=== PATIENT | female | born 1965 | race Caucasian/White ===

== ENCOUNTER → 2017-10-03 | Outpatient (CLI) | payer OTHER ==
[~2017-10-03] MED LIST: ACID1GRA3 PO; VANC1VIA3 PO
== END ==
LOC: CVU 07:42 → EDSTATUS 08:00
PROVIDERS: ATTEND Internal Medicine Cardiovascular Disease
DX: R00.2 Palpitations (principal); R06.02 Shortness of breath; Z82.49 Family history of ischemic heart disease and other diseases of the circulatory system
CPT/HCPCS: 93306

== ENCOUNTER 2018-08-21 12:59 | Emergency (ER) | payer OTHER ==
[~2018-08-21] VITALS: Ht 157.5 cm; Wt 63.5 kg
[2018-08-21 13:10] VITALS: BP 126/81
[2018-08-21] MEDS ORDERED: ASPIRIN 81 MG TABLET CHEW PO ONE (13:30)
[2018-08-21 13:43] LABS: BASOPHILS # (AUTO) 0.06 x10^3/uL (0-0.1); BASOPHILS % (AUTO) 1 % (0-1); EOSINOPHILS # (AUTO) 0.09 x10^3/uL (0-0.4); EOSINOPHILS % (AUTO) 1 % (1-7); LYMPHOCYTES # (AUTO) 2.59 x10^3/uL (1-3.4); LYMPHOCYTES % (AUTO) 29 % (22-44); MD NO; MEAN CORPUSCULAR HEMOGLOBIN 29.7 pg (27.0-34.8); MEAN CORPUSCULAR HGB CONC 33.4 g/dL (32.4-35.8); MEAN CORPUSCULAR VOLUME 88.9 fL (80-100); MEAN PLATELET VOLUME 9.2 fL (7.4-10.4); MONOCYTES # (AUTO) 0.53 x10^3/uL (0.2-0.8); MONOCYTES % (AUTO) 6 % (2-9); NEUTROPHILS # (AUTO) 5.72 x10^3/uL (1.8-6.8); NEUTROPHILS % (AUTO) 64 % (42-75); PLATELET COUNT 217 x10^3/uL (130-400); RED BLOOD COUNT 4.99 x10^6/uL (3.82-5.3); RED CELL DISTRIBUTION WIDTH 13.5 % (9.6-15.2)
[2018-08-21 13:55] LABS: ANION GAP 6 mmol/L (5-15); CALCIUM 9.2 mg/dL (8.5-10.1); CHLORIDE 108 mmol/L (98-107)
[2018-08-21 14:02] LABS: CREATININE 0.82 mg/dL (0.55-1.02); TROPONIN I < 0.015 ng/mL (0.000-0.045)
--- NOTE | 2018-08-21 14:20 | NUR ---
Pt presents for FB sensation in throat x several days. Able to swallow. NAD at this time.
--- NOTE | 2018-08-21 14:27 | NUR ---
Hold ASA per MD
--- NOTE | 2018-08-21 14:37 | NUR ---
DELAY/ PROCEDURE IN FLUORO ROOM
--- NOTE | 2018-08-21 16:59 | NUR ---
Patient/Caregiver given discharge instructions and they have confirmed that they understand the instructions. Patient ambulatory with steady gait.
== END 2018-08-21 17:00 | disposition home or self-care (01) ==
LOC: ED 16:34
DX: R13.14 Dysphagia, pharyngoesophageal phase (principal); K21.9 Gastro-esophageal reflux disease without esophagitis
CPT/HCPCS: 36415; 71045; 74220; 80048; 82040; 84484; 85025; 93005; 99284

== ENCOUNTER → 2020-03-24 | Outpatient (CLI) | payer OTHER | END | disposition home or self-care (01) | LOC: CFH 13:51 | PROVIDERS: ATTEND Family Medicine | DX: N64.4 Mastodynia (principal) | CPT/HCPCS: 76642; 77066; G0279 ==

== ENCOUNTER 2020-07-18 10:18 | Emergency (ER) | payer OTHER ==
[~2020-07-18] VITALS: Ht 157.5 cm; Wt 66.3 kg
--- NOTE | 2020-07-18 10:58 | NUR ---
Pt found sitting on edge of bed with moderately swollen L thumb. Pt states she had her nails done 3 weeks ago where glue had gotten under the nail edge and started to swell, then it was "popped open" with the edge of a postcard and has remained sore and swollen since. Pt has been on PO abx since of this week without change in soreness or swelling. MD just left room and we are awaiting MD orders at this time.
[2020-07-18 11:09] VITALS: BP 129/56
== END 2020-07-18 12:26 | disposition home or self-care (01) ==
LOC: ED 12:15
DX: L03.012 Cellulitis of left finger (principal)
CPT/HCPCS: 99283

== ENCOUNTER 2021-01-22 10:05 | Emergency (ER) | payer OTHER ==
[~2021-01-22] VITALS: Ht 157.5 cm; Wt 65.7 kg
[~2021-01-22 10:05] MED LIST changes: -VANC1VIA3 PO; +VANC1VIA36 PO
--- NOTE | 2021-01-22 10:30 | NUR ---
Walks to room 14, requested pt to change completly into gown warm blankets provided. AIDET waiting for ERP evaluation and further orders. EKG non acute at triage.
--- NOTE | 2021-01-22 10:37 | NUR ---
Pt connected to monitors, pulse ox, b/p, in NSR no ectopy no ST elevation. Pt with significant family hx sister of dialated cardiomyapathy, mother of [place]. Pt with vague, intermittent left sided cp under breast, no sob, no n/v.
[2021-01-22] MEDS ORDERED: ASPIRIN 81 MG TABLET CHEW PO ONE (11:00)
[2021-01-22] MEDS ORDERED: SODIUM CHLORIDE FLUSH 10ML SYR IVF ONE (11:00)
[2021-01-22] MEDS ORDERED: ASPIRIN 81 MG TABLET CHEW ONE (11:03)
--- NOTE | 2021-01-22 11:24 | NUR ---
Repeat EKG, swabbed for covid and walked to lab. Labs drawn and sent, urine sent, PCXR done. On monitor NSR no ectopy.
[2021-01-22 11:26] LABS: BASOPHILS % (AUTO) 1 % (0-1); EOSINOPHILS % (AUTO) 1 % (1-7); LYMPHOCYTES % (AUTO) 30 % (22-44); MEAN CORPUSCULAR HEMOGLOBIN 30.2 pg (27.0-34.8); MEAN CORPUSCULAR HGB CONC 33.5 g/dL (32.4-35.8); MEAN PLATELET VOLUME 8.9 fL (7.4-10.4); MONOCYTES % (AUTO) 9 % (2-9); NEUTROPHILS % (AUTO) 59 % (42-75); PLATELET COUNT 228 x10^3/uL (130-400); RED BLOOD COUNT 5.22 x10^6/uL (3.82-5.3); RED CELL DISTRIBUTION WIDTH 13.8 % (9.6-15.2)
[2021-01-22 11:39] LABS: ALBUMIN 4.2 g/dL (3.4-5.0); ANION GAP 7 mmol/L (5-15); CALCIUM 9.3 mg/dL (8.5-10.1); CHLORIDE 108 mmol/L (98-107)
--- NOTE | 2021-01-22 11:39 | NUR ---
Blue top drawn and handed to lab.
[2021-01-22 11:45] LABS: ALANINE AMINOTRANSFERASE 22 U/L (12-78); ALKALINE PHOSPHATASE 100 U/L (45-117); BILIRUBIN,TOTAL 0.5 mg/dL (0.2-1.0); CREATININE 0.78 mg/dL (0.55-1.02); TROPONIN I < 0.015 ng/mL (0.000-0.045)
--- NOTE | 2021-01-22 12:11 | NUR ---
TASK RN: PT RESTING IN NAD. VSS.
--- NOTE | 2021-01-22 12:50 | NUR ---
Repeat trop drawn from IV, proper waste prior. Pt prepared for CTA.
[2021-01-22 13:16] LABS: TROPONIN I < 0.015 ng/mL (0.000-0.045)
[2021-01-22] MEDS ORDERED: OMNIPAQUE 350 MG/ML, 100ML BOTTLE ONE (13:30)
--- NOTE | 2021-01-22 13:46 | NUR ---
Pt back from CT clutching under her left chest, shaking and hyperventilating with tears in her eyes. No rash, placed on monitor STAT EKG. Pt reassured and encouraged to slow deep breath. Pt wanted to take her xanax in her purse requested she not. Informed Dr Darden.
[2021-01-22] MEDS ORDERED: LORazepam 1MG TABLET ONE (13:56)
[2021-01-22] MEDS ORDERED: LORazepam 1MG TABLET PO ONE (14:00)
--- NOTE | 2021-01-22 14:33 | NUR ---
Pt with less anxious, verbalized her feelings of anxiety about covid etc. IV dc cath intact, dc home with instruct, pt verbalizes understanding to f/u with her pcp to return to ER if worse or concerns.
[2021-01-22 14:35] VITALS: BP 135/71
== END 2021-01-22 14:45 | disposition home or self-care (01) ==
LOC: ED 12:09
DX: R07.89 Other chest pain (principal); Z20.822 Contact with and (suspected) exposure to COVID-19; R06.02 Shortness of breath; R94.31 Abnormal electrocardiogram [ECG] [EKG]
CPT/HCPCS: 36415; 71045; 71275; 80053; 84484; 85025; 85379; 93005; 99285; Q9967; U0003; U0005

== ENCOUNTER 2021-01-24 09:11 | Emergency (ER) | payer OTHER ==
[~2021-01-24] VITALS: Ht 157.5 cm; Wt 65.6 kg
--- NOTE | 2021-01-24 09:57 | NUR ---
PT IN HOSPITAL GOWN. PT PLACED ON CARDIAC AND VITALS MONITORS. LAB IN TO DRAW LABS. WILL CONTINUE TO MONITOR.
[2021-01-24] MEDS ORDERED: METHOCARBAMOL 750 MG TABLET PO ONE (10:00)
[2021-01-24] MEDS ORDERED: KETOROLAC 30 MG/1 ML IM ONE (10:00)
[2021-01-24] MEDS ORDERED: KETOROLAC 30 MG/1 ML ONE (10:05)
[2021-01-24] MEDS ORDERED: METHOCARBAMOL 750 MG TABLET ONE (10:05)
--- NOTE | 2021-01-24 10:17 | NUR ---
pt refused medication at this time. STATED SHE IS MORE CONCERNED WITH FINDING OUT WHY HER HEART IS RACING. ERP AWARE PT REFUSED MEDS AT THIS TIME. WILL CONTINUE TO MONITOR.
[2021-01-24 10:19] LABS: TROPONIN I < 0.015 ng/mL (0.000-0.045)
[2021-01-24 11:34] VITALS: BP 106/71
== END 2021-01-24 11:35 | disposition home or self-care (01) ==
LOC: ED 09:26
DX: R07.89 Other chest pain (principal); R00.2 Palpitations; F41.1 Generalized anxiety disorder
CPT/HCPCS: 36415; 84443; 84484; 93005; 99284

== ENCOUNTER 2021-02-09 08:32 | Outpatient (CLI) | payer OTHER | END 2021-02-09 23:59 | disposition home or self-care (01) | LOC: CFH 08:32 | PROVIDERS: ATTEND Internal Medicine Cardiovascular Disease | DX: I25.10 Atherosclerotic heart disease of native coronary artery without angina pectoris (principal); R07.89 Other chest pain | CPT/HCPCS: 75571 ==